=== PATIENT | male | born 1995 | race African-American/Black ===

== ENCOUNTER 2017-06-23 18:50 | Emergency (ER) | payer OTHER | END 2017-06-23 20:25 | disposition home or self-care (01) | LOC: NEPD 18:50 | DX: H66.001 Acute suppurative otitis media without spontaneous rupture of ear drum, right ear (principal) | CPT/HCPCS: 99283 ==

== ENCOUNTER 2017-06-25 21:17 | Emergency (ER) | payer OTHER ==
[~2017-06-25] VITALS: Ht 182.9 cm; Wt 75.0 kg
[~2017-06-25 21:17] MED LIST: AUGM875T3 PO
[2017-06-25 21:21] VITALS: BP 131/87; PULSE 55; RESP 16; TEMP 98.1; O2SAT 100
[2017-06-25] MEDS ORDERED: IBUP-232 PO (21:45)
[2017-06-25] MEDS ORDERED: SULFAMETHOXAZOLE-TRIMETHOPRIM DS 800-160 MG TAB PO ONE (21:45)
[2017-06-25] MEDS ORDERED: traMADol HCL 50 MG TAB PO ONE (21:45)
[2017-06-25] MEDS ORDERED: TRAM50 PO (21:45)
[2017-06-25] MEDS ORDERED: CLINDAMYCIN 150 MG CAP PO ONE (21:45)
[2017-06-25] MEDS ORDERED: CLIN150C14 PO (21:45)
[2017-06-25] MEDS ORDERED: BACT800T5 PO (21:45)
--- NOTE | 2017-06-25 21:45 | PD ---
HPI Chief Complaint: ENT Complaint Time Seen by Provider: 21:31 Travel History International Travel<30 days: No Contact w/Intl Traveler<30days: No Traveled to known affect area: No History of Present Illness HPI 22-year-old male complains of painful lump behind the right ear. Patient was seen in emergency room 2 days ago for right otitis media. Patient was given prescription of Augmentin 875 twice a day. Patient has been taking Augmentin as directed. Patient states that he has increasing pain and swelling behind the right ear since then. Patient states the pain is sharp burning pain. Patient denies any pain radiation. Patient denies any fever chills. On a scale of 1-10 the pain is a 9. PFSH Past Medical History Medical History: Denies Significant Hx Diminished Hearing: No Immunizations Current: Yes Tetanus Vaccination: < 5 Years Influenza Vaccination: No Past Surgical History Ear Surgery: Yes (as a child) Social History Alcohol Use: No Tobacco Use: No Substance Use: No Allergies-Medications (Allergen,Severity, Reaction): Coded Allergies: No Known Allergies (Unverified , 06/25/17) Reported Meds & Prescriptions Reported Meds & Active Scripts Active Augmentin (Amoxicillin-Clavulanate) 875-125 Mg Tab 1 Tab PO BID Review of Systems General / Constitutional: No: Fever Eyes: No: Visual changes HENT: No: Headaches Cardiovascular: No: Chest Pain or Discomfort Respiratory: No: Shortness of Breath Gastrointestinal: No: Abdominal Pain Genitourinary: No: Dysuria Musculoskeletal: No: Pain Skin: No Rash Neurologic: No: Weakness Psychiatric: No: Depression Endocrine: No: Polydipsia Hematologic/Lymphatic: No: Easy Bruising Physical Exam Narrative GENERAL: Well-nourished, well-developed patient. SKIN: Focused skin assessment warm/dry. HEAD: Normocephalic. EYES: No scleral icterus. No injection or drainage. NECK: Supple, trachea midline. No JVD or lymphadenopathy. CARDIOVASCULAR: Regular rate and rhythm without murmurs, gallops, or rubs. RESPIRATORY: Breath sounds equal bilaterally. No accessory muscle use. GASTROINTESTINAL: Abdomen soft, non-tender, nondistended. MUSCULOSKELETAL: No cyanosis, or edema. BACK: Nontender without obvious deformity. No CVA tenderness. Patient has an area of redness swelling tenderness behind the right ear lobe. No induration and no discharge. Right TM is clear. Right ear canal normal. Data Data Last Documented VS Vital Signs Date Time Temp Pulse Resp B/P (MAP) Pulse Ox O2 Delivery O2 Flow Rate FiO2 06/25/17 21:21 98.1 55 16 131/87 (102) 100 Orders Orders Clindamycin (Cleocin) (06/25/17 21:45) Sulfamet-Trimeth Ds 800-160 Mg (Bactrim (06/25/17 21:45) MDM Medical Decision Making Medical Screen Exam Complete: Yes Emergency Medical Condition: Yes Differential Diagnosis Differential diagnosis including lymphadenitis, abscess. Narrative Course 22-year-old male with painful lump behind the right ear. Patient is on Augmentin day #2 for otitis media. Clindamycin 300 mg by mouth given. Bactrim DS one tablet by mouth given. Ultram one tablet by mouth given. Diagnosis Primary Impression: Lymphadenitis Patient Instructions: General Instructions Additional Instructions: Stop Augmentin. Clindamycin Bactrim DS as directed. Return in 2 days for recheck. Med/Other Pt SpecificInfo: Prescription(s) given, Med Stopped Scripts Tramadol (Ultram) 50 Mg Tab 50 MG PO Q6H Y for PAIN, #12 TAB 0 Refills Prov: Darryl Ram MD 06/25/17 Ibuprofen (Ibuprofen) 600 Mg Tab 600 MG PO TID for Pain, #30 TAB 0 Refills Prov: Darryl Ram MD 06/25/17 Sulfamethoxazole-Trimethoprim (Bactrim DS) 800-160 Mg Tab 1 TAB PO BID for Infection, #20 TAB 0 Refills Prov: Darryl Ram MD 06/25/17 Clindamycin (Clindamycin) 150 Mg Cap 300 MG PO Q6H for Infection, #80 CAP 0 Refills Prov: Darryl Ram MD 06/25/17 Disposition: 01 DISCHARGE HOME Condition: Stable Darryl Ram MD Jun 25, 2017 21:45
== END 2017-06-25 22:01 | disposition home or self-care (01) ==
LOC: NEPD 21:17
DX: I88.9 Nonspecific lymphadenitis, unspecified (principal)
CPT/HCPCS: 99284

== ENCOUNTER 2017-06-27 22:18 | Emergency (ER) | payer OTHER ==
[~2017-06-27] VITALS: Ht 182.9 cm; Wt 75.0 kg
[~2017-06-27 22:18] MED LIST changes: +BACT800T5 PO; +CLIN150C14 PO; +IBUP-232 PO; +TRAM50 PO
[2017-06-27 22:20] VITALS: BP 134/67; PULSE 70; RESP 18; TEMP 97.1; O2SAT 99
--- NOTE | 2017-06-27 22:54 | PD ---
HPI Chief Complaint: Skin Problem Time Seen by Provider: 22:42 Travel History International Travel<30 days: No Contact w/Intl Traveler<30days: No Traveled to known affect area: No History of Present Illness HPI Patient has behind his right ear an area that has swelled up progressively over the last 2 weeks he has been put on antibiotics seen twice in ER without relief of his symptoms he says many years ago with 20 years ago he had a some kind of inflammation there that was drained and never came back but now it is back in similar situation.. Now in the ER is complaining of fluctuant tenderness behind the right ear it all started 2 weeks ago with pain inside the ear canal which now has progressed to this posterior auricle 3 cm area that is fluctuant PFSH Past Medical History Medical History: Denies Significant Hx Diminished Hearing: No Immunizations Current: Yes Past Surgical History Ear Surgery: Yes (RT EAR as a child) Other Surgery: Yes (HERNIA) Social History Alcohol Use: No Tobacco Use: No Substance Use: No Allergies-Medications (Allergen,Severity, Reaction): Coded Allergies: No Known Allergies (Unverified , 06/25/17) Reported Meds & Prescriptions Reported Meds & Active Scripts Active Ultram (Tramadol HCl) 50 Mg Tab 50 Mg PO Q6H PRN Ibuprofen 600 Mg Tab 600 Mg PO TID Bactrim DS (Sulfamethoxazole-Trimethoprim) 800-160 Mg Tab 1 Tab PO BID Clindamycin (Clindamycin HCl) 150 Mg Cap 300 Mg PO Q6H Augmentin (Amoxicillin-Clavulanate) 875-125 Mg Tab 1 Tab PO BID Review of Systems Except as stated in HPI: all other systems reviewed are Neg HENT: Positive: Earache, Other (posterior auricular small fluctuant area painful not responding to by mouth antibiotics) Physical Exam Narrative GENERAL: SKIN: Warm and dry. HEAD: Atraumatic. Normocephalic. EYES: Pupils equal and round. No scleral icterus. No injection or drainage. ENT: No nasal bleeding or discharge. Mucous membranes pink and moist. Behind the right ear there is a fluctuant area of at the posterior auricular area 3 cm long x2cm wide NECK: Trachea midline. No JVD. CARDIOVASCULAR: Regular rate and rhythm. RESPIRATORY: No accessory muscle use. Clear to auscultation. Breath sounds equal bilaterally. GASTROINTESTINAL: Abdomen soft, non-tender, nondistended. Hepatic and splenic margins not palpable. MUSCULOSKELETAL: Extremities without clubbing, cyanosis, or edema. No obvious deformities. NEUROLOGICAL: Awake and alert. No obvious cranial nerve deficits. Motor grossly within normal limits. Five out of 5 muscle strength in the arms and legs. Normal speech. PSYCHIATRIC: Appropriate mood and affect; insight and judgment normal. Data Data Last Documented VS Vital Signs Date Time Temp Pulse Resp B/P (MAP) Pulse Ox O2 Delivery O2 Flow Rate FiO2 06/27/17 22:20 97.1 70 18 134/67 (89) 99 Room Air Orders Orders Lidocaine 2% Inj (Xylocaine 2% Inj) (06/27/17 23:00) Wound Culture And Gram Stain (06/27/17 23:37) MDM Medical Decision Making Medical Screen Exam Complete: Yes Emergency Medical Condition: Yes Differential Diagnosis Possible lymphadenopathy versus a abscess versus a serous collection Narrative Course I Betadine the area prepped. I do a lidocaine injection then I do an I and D expressing pus which is sent to the lab. Patient feels much relief bacitracin applied gauze applied topically there is no packing put in. Patient is instructed to continue his clindamycin which she received from the other doctor Procedures Procedure Narrative I&D procedure posterior auricular abscess right-sided Betadine prepped injected with 2% lidocaine 18-gauge is used to retract pus into the syringe which is sent to the lab culture-watters and then I put a 11 blade cut to express more pus I do not packet the areas too small to put a wick in put a 4 x 4 gauze taped and leave it to drain Diagnosis Primary Impression: Skin abscess Qualified Codes: L02.01 - Cutaneous abscess of face Patient Instructions: Abscess (ED), General Instructions Additional Instructions: Continue to take the clindamycin 4 times a day as prescribed. Leave the gauze covering in place for 36 hours till Sunday morning. He may use the gauze provided to reapply another dressing. Return if there is any sign of infection progressing otherwise follow here doctor in 3 days keep dry do not submerge your head under water for the next 5 days. Disposition: 01 DISCHARGE HOME Condition: Good Ryder Bond MD Jun 27, 2017 22:54
[2017-06-27] MEDS ORDERED: LIDOCAINE HCL 2% 20 ML VIAL INFIL ONE (23:00)
== END 2017-06-27 23:57 | disposition home or self-care (01) ==
LOC: NEPC 22:18
DX: H60.01 Abscess of right external ear (principal)
CPT/HCPCS: 10060; 87070; 87205